=== PATIENT | female | born 1985 | race Caucasian/White ===

== ENCOUNTER 2016-07-10 23:42 | Emergency (ER) | payer BC ==
--- NOTE | ~2016-07-10 | CR2 ---
[facility] A Service of [facility] [place] RADIOLOGY TEXT RESULTS PATIENT: DILLON SOMMER LOCATION: [facility] : 85 UNIT #: [id number] AGE: [address]: Jae Mcpherson MD SEX: F ORDER DR: [id number] [facility] [address] [place], [place] [address] [id number] E MR#: [id number] Acc #: [id number] NAME: DILLON SOMMER : 1985 SEX: F STUDY DATE/TIME: 07/11/2016 0:00 UNIT: [facility] ROOM: STUDY DESCRIPTION: CR Abdomen Acute Series Attending Physician: Jae Mcpherson M.D. Ordering Physician: Jae Mcpherson M.D. Primary Care Physician: Claudine Kennedy MEDICAL IMAGING REPORT This report is preliminary unless electronic signature is present EXAM Acute abdominal series COMPARISON 2 views of the chest dated December 20, [address] abdomen and pelvis dated January 04, 2012. INDICATION 30-year-old female with right-sided flank, back and abdominal pain for 2 days. FINDINGS Nerve stimulator device is seen just to the right of the spine at L4-L5. Leads appear intact, terminating at approximately the level of T8. No abnormally dilated bowel loops. No free subdiaphragmatic air. No pneumothorax, pleural effusion or acute airspace disease. Cardiomediastinal silhouette is normal. No possible renal or ureteral calculi are seen on this exam. IMPRESSION 1. No evidence of bowel obstruction or perforation. No acute radiographic abnormality of the chest. 2. Spinal nerve stimulator device is noted, without complication. Leads terminate over the level of T8. Dictated by... Mark Chavira M.D. THIS IS AN ELECTRONICALLY VERIFIED REPORT Mark Chavira M.D. at 07/11/2016 8:40 AM Nasima TD: 07/11/2016 08:23 [facility] A Service of [facility] [place] RADIOLOGY TEXT RESULTS PATIENT: DILLON SOMMER LOCATION: [facility] : 85 UNIT #: [id number] AGE: [address]: Jae Mcpherson MD SEX: F ORDER DR: JOB #: [id number] MEDICAL IMAGING REPORT COPY
[~2016-07-10 23:42] MED LIST: ALBUTEROL17 GM INH; CELEXA PO; FLOMAX0.4 M1 PO; MEDROL PO; OMEPRAZOLE20 M1 PO; ORTHO-NOVUM1 TAB PO; PERCOCET5/325 PO; PHENERGAN25 MG PO; TRAMADOL HCL50 M2 PO; ZITHROMAX PO
[2016-07-11 00:02] LABS: URINE SOURCE CLEAN CATCH
[2016-07-11 00:08] LABS: URINE APPEARANCE TURBID; URINE BILIRUBIN NEG (NEG); URINE BLOOD NEG (NEG); URINE COLOR YELLOW; URINE GLUCOSE NEG (NEG); URINE KETONE NEG (NEG); URINE LEUKOCYTE ESTERASE TRACE (NEG); URINE NITRATE NEG (NEG); URINE PROTEIN NEG (NEG); URINE SPECIFIC GRAVITY 1.014 (1.003-1.035); URINE UROBILINOGEN 0.2 MG/DL (NEG)
[2016-07-11 00:10] LABS: URINE BACTERIA AUWI NEG (NEGATIVE); URINE SQUAMOUS EPITHELIAL CELL NONE SEEN /[HPF]
[2016-07-11 00:11] LABS: CULTURE INDICATED? NO
== END 2016-07-11 01:00 | disposition home or self-care (01) ==
LOC: CFTX 23:42
PROVIDERS: Emergency Medicine
DX: R10.9 Unspecified abdominal pain (principal); F17.200 Nicotine dependence, unspecified, uncomplicated; Z90.49 Acquired absence of other specified parts of digestive tract; Z87.442 Personal history of urinary calculi; Z88.0 Allergy status to penicillin; Z88.2 Allergy status to sulfonamides; Z91.041 Radiographic dye allergy status
CPT/HCPCS: 74022; 81003; 84703; 99284